=== PATIENT | female | born 1985 | race Caucasian/White ===

== ENCOUNTER 2019-03-28 09:10 | Day surgery (SDC) | payer MEDICAID ==
[~2019-03-28] VITALS: Ht 165.1 cm; Wt 82.6 kg
[~2019-03-28 09:10] MED LIST: BUSPAR10 MG PO; HYDROCODON-ACE1 EAC7 PO; IBUPROFEN600 MG PO; POTASSIUM99 M1 PO; PRENATAL COMPLE1 TAB PO; SYNTHROID50 MCG PO; ZYRTEC10 MG PO
[2019-03-28 09:37] LABS: HEMATOCRIT 39.8 % (36.0-48.0); HEMOGLOBIN 13.4 g/dL (12-16); MCH 29.1 pg (26.0-34.0); MCHC 33.7 g/dL (31.0-37.0); MCV 86.3 fL (80.0-100.0); MEAN PLATELET VOLUME 10.2 fL (7.4-10.4); RBC 4.61 10x6/uL (4.00-5.40); RDW 12.9 % (11.5-14.5); WBC 6.6 10x3/uL (4.8-10.8)
[2019-03-28] MEDS ORDERED: HYDROCODON-ACE1 EAC7 PO (12:22)
[2019-03-28 12:58] VITALS: BP 143/93; Ht 165.1 cm; Wt 82.6 kg
[2019-03-28 13:14] LABS: HCG URINE NEGATIVE (NEGATIVE)
--- NOTE | 2019-03-28 19:19 | NUR ---
1500 TO ROOM SLIGHTLY NAUSEATED BUT WANTED TO EAT SOMETHING TO SEE IF THAT WOULD HELP. HOB ELEVATED. STARTED OFF WITH WATER, TOLERATED WELL. RECIEVED A FULL LIQ TRAY. ABDOMEN SOFT AND DRESSING CDI. IV W/O SWELLING. 1615 INSTRUCTIONS GIVEN TO PT AND FAMILY MEMBER. PT STATED SOMEONE STATED SHE WOULD HAVE ROSIO CALLED INTO [facility],DR CONTRERAS PAGED AND NOTIFIED OF PTS REQUEST AND HE STATED SHE HAS A SCOP PATCH ON, NO ZOFRAN ORDER GIVEN. PT INFORMED. 1630 IV REMOVED AND ALL OF REMAINDING IV FLUIDS GIVEN AND PT VOIDED IN BATHROOM, IV REMOVED. PT D/C TO HOME. AFTER PT D/C PT CALLED UNIT FOR SOME TYLEOL #3. STATED SHE HAS NORCO TO BE PICKED UP AT PHARMACY. PT THOUGHT SHE NEEDED 2 DIFFERENT RX AND WAS TO ALTERNATE THEM. INFORMED PT AGAIN WHAT ORDERED AND WHAT HE SAID ABOUT THE ROSIO
== END 2019-03-28 17:00 | disposition home or self-care (01) ==
LOC: D.OPS 09:10
PROVIDERS: Anesthesiology; ATTEND Surgery
DX: K80.80 Other cholelithiasis without obstruction (principal)

== ENCOUNTER 2019-05-09 11:47 | Emergency (ER) | payer MEDICAID ==
[~2019-05-09] VITALS: Ht 165.1 cm; Wt 72.7 kg
[2019-05-09 11:54] VITALS: Ht 165.1 cm; Wt 72.7 kg
[2019-05-09 14:13] LABS: BASOPHILS 0.4 % (0-2); EOSINOPHILS 4.6 % (0-7); HEMATOCRIT 38.5 % (36.0-48.0); IMMATURE GRANULOCYTES 0.2 % (0-5); LYMPHOCYTES 30.6 % (15-50); MCHC 33.8 g/dL (31.0-37.0); MCV 85.7 fL (80.0-100.0); MEAN PLATELET VOLUME 9.8 fL (7.4-10.4); MONOCYTES 4.4 % (2-11); NEUTROPHILS 59.8 % (40-80); PLATELET COUNT 336 10x3/uL (130-400); RBC 4.49 10x6/uL (4.00-5.40); RDW 12.6 % (11.5-14.5); WBC 9.1 10x3/uL (4.8-10.8)
[2019-05-09 14:31] LABS: CALC OSMOLALITY 277 mosm/kg (275-300); CALCIUM 8.9 mg/dL (8.5-10.1); CARBON DIOXIDE 26.8 mmol/L (21.0-32.0); CHLORIDE - SERUM 103 mmol/L (98-107); CREATININE - SERUM 0.7 mg/dL (0.6-1.3); GLUCOSE 101 mg/dL (74-106); POTASSIUM - SERUM 4.1 mmol/L (3.5-5.1); SODIUM 139 mmol/L (136-145); UREA NITROGEN 13 mg/dL (7-18); eGFR NON AFRICAN AMERICAN > 90 mL/min (90-120)
[2019-05-09 14:34] LABS: ALBUMIN 3.8 g/dL (3.4-5.0); ALKALINE PHOSPHATASE 65 U/L (30-120); ALT (SGPT) 34 U/L (10-68); AMYLASE - SERUM 48 U/L (25-115); LIPASE 105 U/L (73-393); PROTEIN - SERUM 8.1 g/dL (6.4-8.2)
[2019-05-09 16:02] LABS: APPEARANCE CLEAR (CLEAR); BILIRUBIN NEGATIVE (NEGATIVE); COLOR YELLOW (YELLOW); GLUCOSE NEGATIVE (NEGATIVE); KETONE NEGATIVE (NEGATIVE); NITRITE NEGATIVE (NEGATIVE); PROTEIN NEGATIVE (NEGATIVE); UROBILINOGEN NORMAL (NORMAL)
[2019-05-09] MEDS ORDERED: CYCLOBENZAPRINE10 MG PO (17:42)
[2019-05-09 19:05] VITALS: BP 116/64
== END 2019-05-09 19:06 | disposition home or self-care (01) ==
LOC: D.ER 11:47
PROVIDERS: Family Medicine
DX: M54.6 Pain in thoracic spine (principal); Z90.49 Acquired absence of other specified parts of digestive tract; E07.9 Disorder of thyroid, unspecified